=== PATIENT | female | born 1995 | race Caucasian/White ===

== ENCOUNTER 2020-01-29 03:50 | Emergency (ER) | payer SELFPAY ==
--- NOTE | ~2020-01-29 | CT_ITS ---
EXAMINATION: CT soft tissue neck w con DATE: 01/29/2020 05:11 INDICATION: Peritonsillar swelling with fever. Positive strep test. TECHNIQUE: Computed tomography (CT) of the neck was performed with 75 mL Omnipaque-350 intravenous co ntrast. The dose-length product was 279.62 mGy-cm. Automated exposure control and iterative reconstru ction technique were employed. COMPARISON: None FINDINGS: There is right peritonsillar edema and enlargement with mild mass effect. There are vague i ll-defined areas of low density in the peritonsillar tissues, consistent with phlegmonous change. No drainable fluid collection is identified. Epiglottis and area epiglottic folds within normal limits. 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 Mild cervical lymphadenopathy, likely marylu ctive. No intracranial abnormalities identified. IMPRESSION: 1. Right peritonsillar edema with asymmetric enlargement and phlegmonous change, consistent with tons illitis. No drainable abscess identified. Reviewed, dictated and finalized at location A. IMPRESSION: 1. Right peritonsillar edema with asymmetric enlargement and phlegmonous change , consistent with tonsillitis. No drainable abscess identified.
[2020-01-29 03:57] VITALS: BP 127/85; PULSE 124; RESP 18; TEMP 38.4; O2SAT 100
--- NOTE | 2020-01-29 04:19 | ED.URI ---
HPI - URI/Sore Throat General Chief Complaint: Fever Stated Complaint: abscess on tonsils Time Seen by Provider: 01/29/20 04:03 Source: patient and family Mode of arrival: ambulatory Limitations: clinical condition History of Present Illness HPI Narrative: Patient is a 24-year-old female who presents to the emergency department with complaint of sore throat. Patient reports onset of symptoms 3 days ago. Patient is having difficulty speaking secondary to pain and swelling in her throat. Patient states she is having trouble swallowing and feels dehydrated. Patient reports headache and fever. She denies any nausea or vomiting. Patient has been using Chloraseptic spray but has not taken acetaminophen or ibuprofen for pain or fever. Patient denies any cough. Patient reports prior episode of peritonsillar abscess a few months ago for which she was treated with antibiotics. She states she never saw a specialist. Patient does not have a primary care physician. MD elicited complaint: sore throat Onset (ago): day(s) (3) Consistency: constant Severity: severe Exacerbating factors: swallowing and speaking Associated symptoms: fever, voice changes and sore throat Treatments prior to arrival: other (Chloraseptic [place]) Related Data Allergies Allergy/AdvReac Type Severity Reaction Status Date / Time No Known Allergies Allergy Verified 01/29/20 04:00 Review of Systems Review of Systems: All systems reviewed & are unremarkable except as noted in HPI and below Constitutional: Constitutional: Reports fever(s) and Reports headache(s) ENT: Reports change in voice, Reports dysphagia, Reports odynophagia, Reports sore throat and Reports throat swelling Respiratory: Respiratory: Denies cough and Denies dyspnea Gastrointestinal: Gastrointestinal: Denies nausea and Denies vomiting PMFSH Past Medical History Medical History (Updated 01/29/20 @ 06:04 by Estrella Hernandez MD) No significant past medical history Surgical History Surgical History (Updated 01/29/20 @ 04:23 by Estrella Hernandez MD) No history of previous surgery Social History Social History (Updated 01/29/20 @ 04:24 by Estrella Hernandez MD) Smoking packs per day: 1 Smoking cigarettes per day: 20.0 Smoking status: Current every day smoker Gender identity (if verbalized by the patient): Female Exam Const: General: cooperative, no acute distress and alert Nutritional Appearance: well nourished Orientation/consciousness: patient oriented x3 Limitations: no limitations HENMT: Mouth: Yes lip normal, Yes dry mucous membranes and Yes muffled voice Throat: uvula midline, peritonsillar mass on the right edematous, posterior oropharynx abnormal edema and erythema and uvula laterally displaced to the left Resp: Effort & Inspection: normal respiratory effort Auscultation: clear to auscultation bilaterally Cardio: Rate: tachycardic Rhythm: regular rhythm GI: GI Palp: Yes Soft to palpation and No Tenderness to palpation present (GI) Auscultation: normal bowel sounds Skin: General skin exam: normal color Neuro: General: patient oriented x3 Cognition (Neuro): normal cognition Speech: normal speech Extrem: General: normal to inspection, full ROM and no clubbing, cyanosis or edema Psych: Mental Status: mental status grossly normal Affect: normal affect Attitude: cooperative Course Course Emergency Course: Patient given antibiotics, steroids, analgesics, and IV fluids. Patient feeling better. Patient speaking much easier and voice no longer muffled. Patient given popsicle. Discussed with patient test results, diagnosis, and treatment plan. Patient advised importance of ENT follow-up care. Patient advised to return to the ED for worsening symptoms or problems. Emphasized importance of hydration. Vital Signs Vital signs: Vital Signs Temperature 101.2 F H 01/29/20 03:57 Pulse Rate 124 H 01/29/20 03:57 Respiratory Rate 18 01/29/20 03:57 B
[2020-01-29] MEDS: KETOROLAC 30 MG/ML VIAL (*BKC) IV PUSH (04:29)
[2020-01-29 04:31] LABS: Basophils Percent Auto 0.3 % (0.2-1.2); Eosinophils Absolute Auto 0.1 K/mm3 (0-0.3); Eosinophils Percent Auto 0.4 % (0-4.4); Hematocrit 36.8 % (37.0-47.0); Hemoglobin 12.1 g/dL (12.0-15.0); Immature Granulocyte Absolute 0.07 K/mm3 (0.00-0.031); Immature Granulocyte Percent A 0.4 % (0-0.5); Mean Corpuscular HGB Conc 32.9 g/dl (32-36); Mean Corpuscular Hemoglobin 29.4 pg (26-34); Mean Corpuscular Volume 89.3 fl (80-100); Mean Platelet Volume 9.7 fl (7.4-10.4); Monocytes Absolute Auto 1.4 K/mm3 (0.1-0.6); Neutrophils Absolute Auto 13.1 K/mm3 (1.3-6.7); Neutrophils Percent Auto 82.9 % (45.5-73.1); Platelet Count Result 268 k/mm3 (150-375); Red Blood Count 4.12 M/mm3 (4.2-5.4); Red Cell Distribution Width 13.2 % (11.5-14.5); White Blood Count 15.7 K/mm3 (4.5-10.0)
[2020-01-29] MEDS: AMPICILLIN SULB 3 GM/NS 100 ML 3 GM/100 ML VIAL IVPB (04:33)
[2020-01-29] MEDS: LACTATED RINGERS 1,000 ML 999 ML IV CONT (04:34)
[2020-01-29 04:45] LABS: Alanine Aminotransferase 89 U/L (4-35); Albumin Level 4.3 g/dL (3.5-5.1); Alkaline Phosphatase 101 U/L (38-126); Aspartate Amino Transferase 55 U/L (14-36); Bilirubin,Total 0.6 mg/dL (0.2-1.3); Blood Urea Nitrogen 16 mg/dL (7-17); Calcium 9.4 mg/dL (8.4-10.2); Carbon Dioxide 29 mmol/L (22-30); Chloride 97 mmol/L (98-107); Estimated Glomerular Filt Rate > 60; Glucose 99 mg/dL (65-105); Potassium 4.1 mmol/L (3.4-5.0); Sodium 134 mmol/L (137-145)
[2020-01-29 06:18] VITALS: BP 122/78; PULSE 94; RESP 20; TEMP 37.3; O2SAT 99
== END 2020-01-29 06:20 | disposition home or self-care (01) ==
PROVIDERS: Emergency Provider Emergency Medicine
DX: J03.00 Acute streptococcal tonsillitis, unspecified (principal); F17.210 Nicotine dependence, cigarettes, uncomplicated
CPT/HCPCS: 36415; 70491; 80053; 85025; 87880; 96361; 96365; 96375; 99284; J0131; J0295; J1100; J1885; J7120; Q9967

== ENCOUNTER 2020-07-23 18:48 | Emergency (ER) | payer OTHER, SELFPAY ==
--- NOTE | ~2020-07-23 | CT_ITS ---
CT soft tissue neck w con DATE: 07/23/2020 20:48 INDICATION: Sore throat for 4 days. Peritonsillar abscess. TECHNIQUE: Axial slices were obtained through the neck. Sagittal and coronal reconstructions. The exa mination was performed with 75 cc Omnipaque 350 intravenous contrast material. Exam dose: 321.04 mGy-cm total exam DLP. COMPARISON: 02/08/2020 CT soft tissue neck examination FINDINGS: There is marked enlargement of the right tonsillar area with edema and low-density lobulate d collection measuring 3.3 x 4.5 x 4.2 cm, including fluid attenuation centrally, suggesting phlegmon and abscess formation. The findings have worsened compared to 01/29/2020. There is mild prominence of the cervical lymph nodes, right greater than left, likely reactive. The epiglottis, aryepiglottic folds, larynx and trachea appear normal. Normal size and homogeneous enhancement of the thyroid gland. 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 The thoracic aortic arch appears normal. IMPRESSION: Right peritonsillar abscess Reviewed, dictated and finalized at [facility]. Reviewed, dictated and finalized at location A. IMPRESSION: Right peritonsillar abscess
--- NOTE | 2020-07-23 19:18 | ED.GENADULT ---
HPI - General Adult General Chief complaint: Unspecified Stated complaint: st Time Seen by Provider: 07/23/20 19:01 History of Present Illness HPI narrative: Pain and swelling in the back of her throat for the past 4 days. Getting worse. She has moderate difficulty with speaking, trismus, odynophagia. No fever. She has had multiple prior peritonsillar abscesses, this feels the same. Related Data Allergies Allergy/AdvReac Type Severity Reaction Status Date / Time No Known Allergies Allergy Verified 07/23/20 19:24 Review of Systems Review of Systems: All systems reviewed & are unremarkable except as noted in HPI and below Constitutional: Constitutional: Denies fever(s) ENT: Reports sore throat Cardiovascular: Cardiovascular: Denies chest pain Respiratory: Respiratory: Denies dyspnea Gastrointestinal: Gastrointestinal: Denies nausea and Denies vomiting Musculoskeletal: Musculoskeletal: Denies back pain Neurologic: Reports dizziness, Denies numbness and Denies weakness PMFSH Past Medical History Medical History No significant past medical history Surgical History Surgical History No history of previous surgery Social History Social History Smoking packs per day: 1 Smoking cigarettes per day: 20.0 Smoking status: Current every day smoker Gender identity (if verbalized by the patient): Female Exam Const: General: no acute distress, alert and ill appearing Orientation/consciousness: patient oriented x3 HENMT: Other: Bulging right peritonssilar tissues, moderate trismus, no stridor Eyes: Pupils: Equal, round and reactive pupils present Neck: Neck: lymphadenopathy (Right anterior cervical) Resp: Effort & Inspection: normal respiratory effort Auscultation: clear to auscultation bilaterally Cardio: Rate: regular rate Rhythm: regular rhythm Skin: General skin exam: normal color Rashes: no rashes Neuro: General: patient oriented x3 and moves all extremities Speech: Abnormal speech present Other: Difficult to understand speech Extrem: General: normal to inspection Course Vital Signs Vital signs: Vital Signs Pulse Rate 101 H 07/23/20 19:19 Respiratory Rate 20 07/23/20 19:19 Blood Pressure 121/86 07/23/20 19:19 Pulse Oximetry 99 07/23/20 19:19 Pulse Rate 105 H 07/23/20 22:35 Respiratory Rate 07/23/20 22:35 Blood Pressure 121/79 07/23/20 22:35 Pulse Oximetry 100 07/23/20 22:35 Procedures Abscess I/D oral: Date of Incision: 07/23/20 Time of Incision: 22:59 Side (if applicable): right Local Anesthetic: lidocaine 1%, with epi and other anesthetic (benzocaine) Technique: needle aspiration Amount of fluid expressed (mL): 11 Packing used?: none I&D Results: Pus Medical Decision Making MDM Narrative Medical decision making narrative: Abscess drained. Tolerating PO. Medical Records Medical records reviewed: Yes I reviewed the patient's medical records. Vital Signs Vital Signs: Vital Signs Pulse Rate 101 H 07/23/20 19:19 Respiratory Rate 07/23/20 19:19 Blood Pressure 121/86 07/23/20 19:19 Pulse Oximetry 99 07/23/20 19:19 Pulse Rate 105 H 07/23/20 22:35 Respiratory Rate 07/23/20 22:35 Blood Pressure 121/79 07/23/20 22:35 Pulse Oximetry 100 07/23/20 22:35 Lab Data Result diagrams: 07/23/20 20:22 Labs: Lab Results 07/23/20 Range/Units 20:22 Creatinine 0.70 (0.7-1.2) mg/dL Estim Creat Clear Calc 99 ml/min Estimated GFR > 60 (59 - ) Imaging Data Radiologist's impression: ITS Impressions Soft Tissue Neck CT 07/23/20 22:49 IMPRESSION: Right peritonsillar abscess Discharge Plan Discharge Clinical Impression: Peritonsillar abscess
[2020-07-23 19:19] VITALS: BP 121/86; PULSE 101; RESP 20; O2SAT 99
[2020-07-23] MEDS: SODIUM CHLORIDE 0.9% IV 1,000 ML 999 ML IV CONT (19:59)
[2020-07-23] MEDS: KETOROLAC 30 MG/ML VIAL (*BKC) IV PUSH (20:00)
[2020-07-23] MEDS: MORPHINE SULFATE 2 MG/ML INJ IV PUSH (20:01)
[2020-07-23 20:24] LABS: Estimated CRCL calculation 99 ml/min; Estimated Glomerular Filt Rate > 60
[2020-07-23] MEDS: AMPICILLIN SULB 3 GM/NS 100 ML 3 GM/100 ML VIAL 200 GM (21:25)
[2020-07-23 21:28] VITALS: BP 109/69; PULSE 104; RESP 20; O2SAT 100
[2020-07-23 22:35] VITALS: BP 121/79; PULSE 105; RESP 20; O2SAT 100
[2020-07-23 23:00] VITALS: BP 125/70; PULSE 101; RESP 19; TEMP 36.3; O2SAT 100
== END 2020-07-23 23:15 | disposition home or self-care (01) ==
PROVIDERS: Emergency Provider Emergency Medicine
DX: J36 Peritonsillar abscess (principal); F17.210 Nicotine dependence, cigarettes, uncomplicated
CPT/HCPCS: 42700; 70491; 96361; 96365; 96375; 99284; A9270; J0295; J1100; J1885; J2270; J7030; Q9967

== ENCOUNTER 2021-02-14 16:44 | Emergency (ER) | payer OTHER, SELFPAY | END 2021-02-14 16:58 | disposition left against medical advice (07) | LOC: EXPCOLL 16:47 | PROVIDERS: Emergency Provider Internal Medicine Hematology & Oncology | DX: Z53.21 Procedure and treatment not carried out due to patient leaving prior to being seen by health care provider (principal) | CPT/HCPCS: 99199 ==

== ENCOUNTER 2021-08-27 03:03 | Emergency (ER) | payer OTHER, SELFPAY ==
--- NOTE | ~2021-08-27 | CT_ITS ---
EXAMINATION: CT soft tissue neck w con DATE: 08/27/2021 05:30 INDICATION: Peritonsillar abscess. TECHNIQUE: Computed tomography (CT) of the neck was performed with 75 mL Omnipaque-350 intravenous co ntrast. Automated exposure control and iterative reconstruction technique were employed. The dose-mervat gth product was 488.33 mGy-cm. COMPARISON: Neck CT 07/23/2020 FINDINGS: The right palatine tonsils are enlarged. There is central low attenuation in the right [place] tonsil measuring up to 2.6 x 1.1 x 1.3 cm, consistent with abscess. There is mild right high int ernal jugular chain lymphadenopathy, likely reactive. The cervical carotid arteries are normal. There is an aberrant right subclavian artery. The mastoid air cells are normal. There is mild mucosal thic kening in right maxillary sinus. There is extensive dental disease. IMPRESSION: 1. Right peritonsillar abscess. 2. Mild right high internal jugular chain lymphadenopathy, likely reactive. 3. Extensive dental disease. Reviewed, dictated and finalized at location A.
[2021-08-27 03:19] VITALS: BP 116/78; PULSE 101; RESP 18; TEMP 36.7; O2SAT 96
[2021-08-27] MEDS: BENZOCAINE/TETRACAINE SPRAY (*SP) 56 ML AEROSOL 1 SPRAY ×2 (04:49→06:22)
[2021-08-27] MEDS: fentaNYL CITRATE INJ (*CRX) 100 MCG/2 ML VIAL (04:53)
[2021-08-27 04:59] LABS: Basophils Percent Auto 0.4 % (0.2-1.2); Eosinophils Percent Auto 0.2 % (0-4.4); Hematocrit 37.6 % (37.0-47.0); Hemoglobin 12.5 g/dL (12.0-15.0); Immature Granulocyte Absolute 0.02 K/mm3 (0.00-0.031); Immature Granulocyte Percent A 0.2 % (0-0.5); Lymphocytes Absolute Auto 2.06 K/mm3 (0.9-3.2); Lymphocytes Percent Auto 24.8 % (18.3-44.2); Mean Corpuscular HGB Conc 33.2 g/dl (32-36); Mean Corpuscular Hemoglobin 30.3 pg (26-34); Mean Corpuscular Volume 91.3 fl (80-100); Mean Platelet Volume 10.1 fl (7.4-10.4); Monocytes Absolute Auto 0.9 K/mm3 (0.1-0.6); Monocytes Percent Auto 10.3 % (2.6-8.5); Neutrophils Absolute Auto 5.3 K/mm3 (1.3-6.7); Neutrophils Percent Auto 64.1 % (45.5-73.1); Platelet Count Result 278 k/mm3 (150-375); Red Blood Count 4.12 M/mm3 (4.2-5.4); White Blood Count 8.3 K/mm3 (4.5-10.0)
[2021-08-27 05:04] VITALS: BP 109/79; PULSE 95; RESP 18; O2SAT 99
[2021-08-27 05:11] LABS: Alanine Aminotransferase 43 U/L (4-35); Albumin Level 4.7 g/dL (3.5-5.1); Alkaline Phosphatase 95 U/L (38-126); Anion Gap 9 mmol/L (8-16); Aspartate Amino Transferase 32 U/L (14-36); Bilirubin,Total 0.9 mg/dL (0.2-1.3); Blood Urea Nitrogen 12 mg/dL (7-17); CRP 4.3 mg/dL (<1.0); Calcium 9.4 mg/dL (8.4-10.2); Carbon Dioxide 31 mmol/L (22-30); Chloride 99 mmol/L (98-107); Estimated CRCL calculation 99 ml/min; Estimated Glomerular Filt Rate > 60; Glucose 88 mg/dL (65-110); Sodium 139 mmol/L (137-145)
[2021-08-27] MEDS: fentaNYL CITRATE INJ (*CRX) 100 MCG/2 ML VIAL 50 MCG IV PUSH ×2 (05:53→06:21)
[2021-08-27 06:07] LABS: Erythrocyte Sedimentation Rate 21 mm/hr (0-20)
--- NOTE | 2021-08-27 07:03 | ED.GENADULT ---
HPI - General Adult General Chief complaint: Unspecified Stated complaint: Swollen tonsils Time Seen by Provider: 08/27/21 03:28 Source: patient and family History of Present Illness HPI narrative: Patient presents with sore throat. Patient reports she has had sore throat for the past several days getting progressively worse and now having difficulty swallowing. She reports a history of sore throat and prior diagnosis of peritonsillar abscess requiring drainage she is concerned that she is having the same. Reports mild fevers and pain on the right side of her neck she denies cough she denies any nausea or vomiting Related Data Allergies Allergy/AdvReac Type Severity Reaction Status Date / Time No Known Allergies Allergy Verified 02/20/21 09:20 Review of Systems Review of Systems: CONSTITUTIONAL: Denies fever, chills, or sweats. EYES: Denies visual changes, redness, or discharge. ENT: Denies rhinorrhea, congestion, or otalgia. CARDIOVASCULAR: Denies chest pain, palpitations, or edema. RESPIRATORY: Denies dyspnea. GASTROINTESTINAL: Denies abdominal pain, nausea, vomiting, or diarrhea. GENITOURINARY: Denies dysuria or hematuria. SKIN: Denies rash or itching. MUSCULOSKELETAL: Denies back pain, joint pain, or myalgia. NEUROLOGIC: Denies headache, numbness, dizziness, or weakness. PSYCHIATRIC: Denies anxiety or depression. All systems reviewed & are unremarkable except as noted in HPI and below PMFSH Past Medical History Medical History (Updated 08/27/21 @ 07:09 by Ismael Saldaña MD) No significant past medical history Surgical History Surgical History No history of previous surgery Social History Social History Smoking packs per day: 1 Smoking cigarettes per day: 20.0 Smoking status: Current every day smoker Gender identity (if verbalized by the patient): Female Exam Narrative: GENERAL: Well-appearing, well-nourished, and in no acute distress. HEAD: Normocephalic, atraumatic. EYES: PERRLA and EOMI. ENT: Nares clear, no rhinorrhea or epistaxis. Mucous membranes moist. Uvula deviation to the left there is submandibular lymphadenopathy on the right there is diffusely poor dentition NECK: Supple. No masses. No JVD CHEST: Clear to auscultation. No respiratory distress. No wheezes rales or rhonchi HEART: Regular rate and rhythm. No murmur heard. Normal peripheral pulses. EXTREMITIES: Normal range of motion. No edema. SKIN: Warm, dry, no rash. NEURO: No focal deficits. Alert and oriented x3. PSYCH: Normal mood and affect. Course Reevaluation(s) Reevaluation #1: Patient resting comfortably without airway compromise. Given patient is not tolerating the procedure we will do a trial of outpatient antibiotics and refer to ENT for further evaluation. Family comfortable with outpatient plan. Date: 08/27/21 Time: 07:05 Vital Signs Vital signs: Vital Signs Temperature 36.7 C 08/27/21 03:19 Pulse Rate 101 H 08/27/21 03:19 Respiratory Rate 18 08/27/21 03:19 Blood Pressure 116/78 08/27/21 03:19 Pulse Oximetry 96 08/27/21 03:19 Temperature 36.7 C 08/27/21 03:19 Pulse Rate 89 08/27/21 07:12 Respiratory Rate 18 08/27/21 07:12 Blood Pressure 112/88 08/27/21 07:12 Pulse Oximetry 99 08/27/21 07:12 Procedures Abscess I/D oral: Date of Incision: 08/27/21 Time of Incision: 06:45 Side (if applicable): right Sedation/analgesia: fentanyl Local Anesthetic: bupivacaine 0.25% Amount of anesthesia used (mL): 6 Technique: needle aspiration Irrigation: No Packing used?: none I&D Results: Pus and Blood Abcess I&D Additional Comments: Attempted peritonsillar abscess drainage. 3 attempts were made with scant purulent material being removed from the syringe. Patient reported he cannot tolerate any further attempts.
--- NOTE | 2021-08-27 07:08 | PC.NURSE ---
Report taken from SUBHA Crespo.
[2021-08-27 07:12] VITALS: BP 112/88; PULSE 89; RESP 18; O2SAT 99
[2021-08-27] MEDS: methylPREDNISolone SOD SUCC 125 MG VIAL IV PUSH (07:12)
[2021-08-27 07:43] VITALS: BP 110/83; PULSE 100; RESP 19; O2SAT 99
== END 2021-08-27 07:45 | disposition home or self-care (01) ==
PROVIDERS: Emergency Provider Emergency Medicine
DX: J36 Peritonsillar abscess (principal); F17.210 Nicotine dependence, cigarettes, uncomplicated
CPT/HCPCS: 36415; 42700; 70491; 80053; 81025; 85025; 85652; 86140; 96374; 96375; 96376; 99284; A9270; J2930; J3010; Q9967

== ENCOUNTER 2023-04-30 17:51 | Emergency (ER) | payer OTHER, SELFPAY ==
--- NOTE | ~2023-04-30 | XR_ITS ---
EXAMINATION: XR finger 2nd LT min 2V INDICATION: Left second finger pain TECHNIQUE: Three views of the left second finger are obtained. COMPARISON: None available FINDINGS: There is diffuse soft tissue swelling of the second finger. No radiopaque foreign body is i dentified. The bones and joint spaces are normal. There is no fracture. IMPRESSION: 1. Soft tissue swelling of the second finger without acute osseous abnormality. Reviewed, dictated and finalized at location F.
[2023-04-30 17:52] VITALS: BP 132/84; PULSE 112; RESP 17; TEMP 37.2; O2SAT 100
--- NOTE | 2023-04-30 19:48 | ED.GENADULT ---
HPI - General Adult General Chief complaint: Unspecified Stated complaint: insect bite Time Seen by Provider: 04/30/23 19:48 Source: patient History of Present Illness HPI narrative: Patient is 28 years old white female neck to her finger by a razor blade 7 days ago, 2 days later started getting swollen and painful, 2 days ago went to the [facility], received a tetanus shot, discharged on prednisone and Augmentin. 2 days later her pain got worse, finger more swollen more red throbbing. Patient denies seeing any spider. She denies any fever or chills, nausea or vomiting. Related Data Allergies Allergy/AdvReac Type Severity Reaction Status Date / Time No Known Allergies Allergy Verified 02/20/21 09:20 Review of Systems Review of Systems: All systems reviewed & are unremarkable except as noted in HPI and below PMFSH Past Medical History Medical History No significant past medical history Surgical History Surgical History No history of previous surgery Social History Social History Smoking packs per day: 1 Smoking cigarettes per day: 20.0 Smoking status: Current every day smoker Gender identity (if verbalized by the patient): Female Exam Narrative: General appearance: Well-developed, well-nourished Skin: Normal color Head: Normocephalic, nontraumatic Chest and respiratory: Airway patent, no respiratory distress, no accessory muscle use Heart: Regular rate/rhythm Vascular: Normal peripheral pulses, normal capillary refill. Musculoskeletal: Diffuse swelling, erythema, tenderness, small openiG at the plantar side of the middle phalanx with purulent discharge Neurologic: Alert and oriented ?3, [employer] is normal as tested, no gross motor deficit Course Reevaluation(s) Reevaluation #1: Patient feels much better after IV vancomycin and IV Toradol Date: 04/30/23 Time: 21:55 Consultations Consultation #1: Dr. Jackson Send patient to another facility Date: 04/30/23 Time: 21:43 Consultation #2: Dr.YOGENDRAN NELSON at [facility] who accepted patient transfer Date: 04/30/23 Time: 21:44 Vital Signs Vital signs: Vital Signs Temperature 37.2 C 04/30/23 17:52 Pulse Rate 112 H 04/30/23 17:52 Respiratory Rate 17 04/30/23 17:52 Blood Pressure 132/84 04/30/23 17:52 Pulse Oximetry 100 04/30/23 17:52 Oxygen Delivery Room Air 04/30/23 17:52 Temperature 37.2 C 04/30/23 17:52 Pulse Rate 112 H 04/30/23 17:52 Respiratory Rate 17 04/30/23 17:52 Blood Pressure 132/84 04/30/23 17:52 Pulse Oximetry 100 04/30/23 17:52 Oxygen Delivery Room Air 04/30/23 17:52 Medical Decision Making MDM Narrative Medical decision making narrative: Patient presents to the ED with infected left index. X-ray showed no foreign body, physical examination showed diffuse infection of the left index with purulent discharge. Patient received 1 g of Rocephin IV prior to transfer to [facility] for hand surgery. Dr. Vu is not on-call today. Patient got accepted to be transferred to the ED of [facility], discussed with , the ER physician Differential Diagnosis Differential Diagnosis: Abscess formation, cellulitis, osteomyelitis Vital Signs Vital Signs: Vital Signs Temperature 37.2 C 04/30/23 17:52 Pulse Rate 112 H 04/30/23 17:52 Respiratory Rate 17 04/30/23 17:52 Blood Pressure 132/84 04/30/23 17:52 Pulse Oximetry 100 04/30/23 17:52 Oxygen Delivery Room Air 04/30/23 17:52 Temperature 37
[2023-04-30 21:11] LABS: Basophils Percent Auto 0.3 % (0.2-1.2); Eosinophils Absolute Auto 0.1 K/mm3 (0-0.3); Eosinophils Percent Auto 0.7 % (0-4.4); Hematocrit 38.1 % (37.0-47.0); Hemoglobin 12.5 g/dL (12.0-15.0); Immature Granulocyte Absolute 0.04 K/mm3 (0.00-0.031); Immature Granulocyte Percent A 0.4 % (0-0.5); Lymphocytes Absolute Auto 2.45 K/mm3 (0.9-3.2); Lymphocytes Percent Auto 24.5 % (18.3-44.2); Mean Corpuscular HGB Conc 32.8 g/dl (32-36); Mean Corpuscular Volume 88.4 fl (80-100); Mean Platelet Volume 9.6 fl (7.4-10.4); Monocytes Absolute Auto 0.8 K/mm3 (0.1-0.6); Monocytes Percent Auto 7.8 % (2.6-8.5); Neutrophils Absolute Auto 6.6 K/mm3 (1.3-6.7); Neutrophils Percent Auto 66.3 % (45.5-73.1); Platelet Count Result 324 k/mm3 (150-375); Red Blood Count 4.31 M/mm3 (4.2-5.4); Red Cell Distribution Width 15.1 % (11.5-14.5)
[2023-04-30 21:58] LABS: Anion Gap 7 mmol/L (8-16); Blood Urea Nitrogen 9 mg/dL (7-17); Carbon Dioxide 29 mmol/L (22-30); Chloride 102 mmol/L (98-107); Estimated CRCL calculation 77 ml/min; Estimated Glomerular Filt Rate > 60; Glucose 97 mg/dL (65-110); Potassium 3.7 mmol/L (3.4-5.0); Sodium 138 mmol/L (137-145)
[2023-04-30] MEDS: VANCOMYCIN 1,000 MG/NS 250 ML BAG 250 MG IVPB (22:03)
[2023-04-30 23:33] VITALS: BP 116/80; PULSE 97; TEMP 37; O2SAT 100
--- NOTE | 2023-04-30 23:55 | PC.NURSE ---
Pt offered transfer via EMS but refused. Will transfer via private vehicle.
== END 2023-04-30 23:55 | disposition short-term general hospital (02) ==
PROVIDERS: Emergency Provider Emergency Medicine
DX: L08.9 Local infection of the skin and subcutaneous tissue, unspecified (principal); F17.210 Nicotine dependence, cigarettes, uncomplicated
CPT/HCPCS: 36415; 73140; 80048; 85025; 96365; 96366; 99284; J3370

== ENCOUNTER 2025-01-07 12:31 | Emergency (ER) | payer BC, SELFPAY ==
--- NOTE | ~2025-01-07 | XR_ITS ---
EXAMINATION: XR shoulder LT min 2V DATE: 01/07/2025 13:52 INDICATION: Left shoulder injury TECHNIQUE: AP internally and externally rotated, AP oblique externally rotated and axillary views of the left shoulder were obtained. COMPARISON: None FINDINGS: Normal alignment. No fracture. Glenohumeral joint is normal. Acromioclavicular joint is normal. Soft tissues are unremarkable. Visualized portions of the lungs are clear. IMPRESSION: Normal left shoulder radiographs. Reviewed, dictated and finalized at location A. TRICAL AND RADIO AIRCRAFT MECHANIC
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
--- OUTSIDE RECORDS SUMMARY | 2025-01-07 12:34 | XMS_ITS | Patient Health Record ---
Author Organization [facility] Address [address] [place] [address] Care Team Providers Care Engineer/Conductor Name Role Phone Julia Meyers Primary Care Provider Allergies No Known Allergies Reason For Referral No Information Medications Medication SIG (Take, Route, Fr equency, Duration) Notes Start Date End Date Status tiZANidine HCl 4 MG 1 tablet as needed O rally Three times a day Active cloNIDine HCl 0.1 MG 1 tablet Orally Onc e a day for 30 day(s) Active Gabapentin 300 MG 1 capsule Orally Onc e a day for 30 day(s) Active Ativan 1 MG 1 tablet at bedtime as needed Orally Once a day Active Social History Tobacco Use: Social History Observation Description Date Details (start date - stop date) Current Smoker NA - NA Sex Assigned At : Social History Observation Description Sex Assigned At Female Dont use, Tobacco Use/Smoking Question Answer Notes Are you a current smoker How many cigarettes a day do you smoke? 11-20 Plan Of Treatment No Information Insurance Providers Payer Name Payer Address Payer Phone Subscriber Number Group Number Insured Name Patient Relationship to Insured Coverage Start Date Coverage End Date [employer] [address] [phone] [id number] Teresa Ambriz Self - patient is the insured 2 Medical (General) History Surgical History Surgery Date(Month/Year) Hospitalization History Reason Date(Month/Year) meningitis 2001
[2025-01-07 12:35] VITALS: BP 122/76; PULSE 96; RESP 18; TEMP 36.5; O2SAT 100
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
[2025-01-07] MEDS: HYDROcodone/acetaminophen (*CRX) 5-325 MG TABLET 1 TAB PO (15:28)
[2025-01-07] MEDS: CYCLOBENZAPRINE HCL 10 MG TABLET PO (15:28)
[2025-01-07 16:49] VITALS: BP 118/78; PULSE 89; RESP 18; TEMP 36.4; O2SAT 98
== END 2025-01-07 16:51 | disposition home or self-care (01) ==
PROVIDERS: Emergency Provider Emergency Medicine
DX: S19.9XXA Unspecified injury of neck, initial encounter (principal); S49.92XA Unspecified injury of left shoulder and upper arm, initial encounter; F17.210 Nicotine dependence, cigarettes, uncomplicated; V49.40XA Driver injured in collision with unspecified motor vehicles in traffic accident, initial encounter
CPT/HCPCS: 70450; 72125; 73030; 99284; A9270

== ENCOUNTER 2025-03-08 20:49 | Emergency (ER) | payer BC, SELFPAY ==
--- OUTSIDE RECORDS SUMMARY | 2025-03-08 20:51 | XMS_ITS | Patient Health Record ---
Author Organization [facility] Address [address] [place] [address] Care Team Providers Care Tungsten Tender Name Role Phone Julia Meyers Primary Care [...] Coverage Start Date Coverage End Date [employer] [address] [phone] [id number] Teresa Ambriz Self - patient is the insured 2 Medical (General) History Surgical History Surgery Date(Month/Year) Hospitalization History Reason Date(Month/Year) meningitis 2001
[2025-03-08 20:52] VITALS: BP 122/78; PULSE 114; RESP 19; TEMP 38.1; O2SAT 100
--- NOTE | 2025-03-09 00:04 | PC.NURSE ---
Patient called two different times for room placement with no answer.
--- OUTSIDE RECORDS SUMMARY | 2025-03-09 00:26 | XMS_ITS | Patient Health Record ---
Author Organization [facility] Address [address] [place] [address] Care Team Providers Care Sales Floor Team Member Name Role Phone Julia Meyers Primary Care [...] Coverage Start Date Coverage End Date [employer] [address] [phone] [id number] Teresa Ambriz Self - patient is the insured 2 Medical (General) History Surgical History Surgery Date(Month/Year) Hospitalization History Reason Date(Month/Year) meningitis 2001
== END 2025-03-09 00:31 | disposition left against medical advice (07) ==
LOC: ANHED 03-09 00:23
DX: K04.7 Periapical abscess without sinus (principal)
CPT/HCPCS: 99199